=== PATIENT | male | born 1980 | race Caucasian/White ===

== ENCOUNTER 2017-01-05 12:12 | Emergency (ER) | payer OTHER ==
[~2017-01-05] VITALS: Ht 182.9 cm; Wt 85.2 kg
[~2017-01-05 12:12] MED LIST: AMOX500T PO; BUPR1SUB SL; OMEP20CA59 PO
[2017-01-05 12:24] VITALS: TEMP 36.9; Ht 182.9 cm; Wt 85.2 kg
[2017-01-05] MEDS ORDERED: CLON0.5T3 PO (12:50)
[2017-01-05] MEDS ORDERED: METH5TAB4 PO (12:50)
[2017-01-05] MEDS ORDERED: EFF75 PO (12:50)
[2017-01-05] MEDS ORDERED: ALBUT/IPRATROP 3MG/0.5MG NEB 3 ML VIAL INH STA (13:07)
--- NOTE | 2017-01-05 14:24 | DIAGNOSTIC IMAGING REPORT ---
CHEST 2 VIEWS ROUTINE CLINICAL HISTORY: cough, sob COMPARISON STUDY: No previous studies for comparison. FINDINGS: The cardiac and mediastinal contours are normal. There is no evidence of focal pulmonary consolidation. There is no evidence of failure. No pleural effusions are visualized.[ IMPRESSION: No active disease in the chest. Electronically signed by: Robbin Brown M.D. 01/05/2017 2:23 PM Dictated Date/Time: 01/05/2017 2:23 PM
--- NOTE | 2017-01-05 14:25 | DIAGNOSTIC IMAGING REPORT ---
RIGHT HIP UNILATERAL 2 VIEWS CLINICAL HISTORY: Right hip pain status post trauma COMPARISON: None. DISCUSSION: No acute fractures or dislocations are visualized. There is a tiny calcific/ossific density adjacent to the superior lateral acetabulum, likely chronic. IMPRESSION: No acute fractures or dislocations identified. Electronically signed by: Robbin Brown M.D. 01/05/2017 2:24 PM Dictated Date/Time: 01/05/2017 2:23 PM
[2017-01-05] MEDS ORDERED: KETOROLAC TROMETHAMINE 30 MG/ML VIAL IV STA (14:34)
[2017-01-05 14:52] LABS: BASO % 0.6 %; BASO ABS # 0.04 K/uL (0-0.2); COMPLETE YES; EOS % 1.8 %; HEMATOCRIT 42.3 % (42-52); IG% 0.2 %; LYMPH % 25.6 %; MEAN CELL VOLUME 92.4 fL (80-100); MEAN CORPUSCULAR HGB CONC 35.7 g/dl (32-36); MONO % 7.5 %; NEUT % 64.3 %; PLATELET COUNT 299 K/uL (130-400); RED BLOOD COUNT 4.58 M/uL (4.7-6.1); WHITE BLOOD COUNT 6.65 K/uL (4.8-10.8)
[2017-01-05 15:15] LABS: C-REACTIVE PROTEIN 3.01 mg/dl (0-0.29); CALCIUM 9.5 mg/dl (8.5-10.1); CREATININE 0.9 mg/dl (0.60-1.40); POTASSIUM 4.1 mmol/L (3.5-5.1)
[2017-01-05] MEDS ORDERED: TRAM-10 PO (15:48)
[2017-01-05] MEDS ORDERED: CEPH500C2 PO (15:48)
[2017-01-05] MEDS ORDERED: SULF800T23 PO (15:48)
[2017-01-05 15:59] VITALS: BP 139/93; PULSE 81; O2SAT 98
--- NOTE | 2017-01-08 09:56 | EMERGENCY ROOM VISIT NOTE ---
ED Visit Note First contact with patient: 12:56 Chief Complaint: Infection. History of Present Illness: Mr. Magana is a 36-year-old white female who ambulates into the ED complaining of a possible infection on his thighs and right hip pain. Historically patient reports he has a history of a MRSA infection of the left elbow [place]. Patient goes on to report that 3 days ago he slipped and fell on ice while walking onto his left hip and has been having left hip pain. He then noticed within 12 hours of his fall 5 individual pustules-like lesions on the bilateral thighs. Since that time he has noticed increasing redness around these individual pustules-like lesions and these lesions have been having increasing pain to. Currently he describes his discomfort with his lesions as a burning like sensation. He rates his discomfort 7/10. The pain is nonradiating. The pain worsens with palpation. He has not identified any alleviating factors related to the pain. He has not taken any medications for pain prior to arrival at the hospital. Additionally he describes his pain as an achy sensation at rest and sharp with palpation and ambulation. He rates this discomfort 7/10. The pain is nonradiating. He has not identified any alleviating factors related to the pain. He has not taken any medications for pain prior to arrival at the hospital he denies any associated symptoms including back pain, buttocks pain, lower leg weakness/numbness/tingling. Additionally while doing his review of symptoms he does report that he's had an upper respiratory tract infection symptoms including mildly productive cough of clear sputum, nasal congestion and dyspnea on exertion. He has not taken any medications for these symptoms. His exertional dyspnea resolves while these at rest. He denies any associated fevers, chills, sweats, hemoptysis, chest pain/ discomfort, orthopnea, dependent edema, previous clots, claudication, cramping, recent surgery/inactivity/extended travel. Review of Systems: As noted above in history of present illness. All body systems were reviewed and found to be negative as noted above. Past Medical History: As previously noted. Current Medications: Effexor, Ritalin, Klonopin. Allergies to Medications: Patient denies. Social History: Patient is currently employed; he feels safe in his home environment; he admits to tobacco use and denies alcohol use. Physical Examination: Vital Signs: Date Time Temp Pulse Resp B/P Pulse Ox O2 Delivery O2 Flow Rate FiO2 01/05/17 15:59 81 16 139/93 98 Room Air 01/05/17 14:59 86 16 136/83 100 Room Air 01/05/17 12:24 36.9 86 18 130/84 99 Room Air GENERAL: 36-year-old male in mild to moderate distress due to pain, nontoxic- appearing, afebrile and hemodynamically stable. NEUROLOGICAL: Awake, alert and oriented to person, place and time. Answering questions appropriately and following commands. Normal gait. Good hand eye coordination. No focal motor sensory deficits. SKIN: Warm, dry and pink. Thighs: On a stye patient has 2-3 pustule-like lesions measuring approximately 3-4 mm. Surrounding the pustule-like lesion area is a 2-3 cm roundish area of erythema. No lymphangitis. HEENT: Atraumatic and normocephalic. BACK: No tenderness over the bony cervical, thoracic and lumbar spine. THORAX: Lungs sounds are decreased bilaterally with inspiratory wheezing. Equal bilaterally with symmetrical chest wall. No rales or rhonchi. No increased respiratory effort or rate. HEART: Regular rate and rhythm. No gallops, rubs or murmurs are appreciated. ABDOMEN: Flat, soft and nontender. Positive bowel sounds in all quadrants. No guarding, rigidity or organomegaly. LOWER EXTREMITIES: Moves all extremities well on command and with purpose. Right: No shortening or malrotation. Tenderness over the greater trochanter with no bony deformity, swelling, ecchymosis or crepitus. Full range of motion in flexion, extension, abduction, abduction and internal and external rotation of the hip and flexion and extension of the knee against resistance. Soft tissue eruptions noted above. These areas are mildly tender to palpation. No palpable internal abscesses. Throughout the leg the skin was warm and pink and capillary refill was brisk. He was able to distinguish light sensations through all dermatomes of the leg. ED Course: Patient is assessed as noted above. Laboratory Testing: Test 01/05/17 14:25 Range/Units White Blood Count 6.65 4.8-10.8 K/uL Red Blood Count 4.58 4.7-6.1 M/uL Hemoglobin 15.1 14.0-18.0 g/dL Hematocrit 42.3 42-52 % Mean Corpuscular Volume 92.4 80-100 fL Mean Corpuscular Hemoglobin 33.0 25-34 pg Mean Corpuscular Hemoglobin Concent 35.7 32-36 g/dl Platelet Count 299 130-400 K/uL Mean Platelet Volume 10.0 7.4-10.4 fL Neutrophils (%) (Auto) 64.3 % Lymphocytes (%) (Auto) 25.6 % Monocytes (%) (Auto) 7.5 % Eosinophils (%) (Auto) 1.8 % Basophils (%) (Auto) 0.6 % Neutrophils # (Auto) 4.28 1.4-6.5 K/uL Lymphocytes # (Auto) 1.70 1.2-3.4 K/uL Monocytes # (Auto) 0.50 0.11-0.59 K/uL Eosinophils # (Auto) 0.12 0-0.5 K/uL Basophils # (Auto) 0.04 0-0.2 K/uL RDW Standard Deviation 42.3 36.4-46.3 fL RDW Coefficient of Variation 12.5 11.5-14.5 % Immature Granulocyte % (Auto) 0.2 % Immature Granulocyte # (Auto) 0.01 0.00-0.02 K/uL Erythrocyte Sedimentation Rate 20 0-14 mm/hr Sodium Level 139 136-145 mmol/L Potassium Level 4.1 3.5-5.1 mmol/L Chloride Level 104 98-107 mmol/L Carbon Dioxide Level 28 21-32 mmol/L Anion Gap 7.0 3-11 mmol/L Blood Urea Nitrogen 8 7-18 mg/dl Creatinine 0.90 0.60-1.40 mg/dl Est Creatinine Clear Calc Drug Dose 124.6 ml/min Estimated GFR () 126.9 Estimated GFR (Non- 109.5 BUN/Creatinine Ratio 9.0 10-20 Random Glucose 87 70-99 mg/dl Calcium Level 9.5 8.5-10.1 mg/dl C-Reactive Protein 3.01 0-0.29 mg/dl Right Hip X-Rays: Were read by myself and the radiologist showing no acute fractures or dislocations. Chest X-Rays: Were read by myself and the radiologist showing no acute infiltrates, effusions or pneumothorax. Normal heart silhouette and bony anatomy. Patient was given an albuterol/Atrovent nebulizer breathing treatment and 60 mg of Toradol IM for pain. Patient was reassessed multiple times during his stay in the emergency department. Patient's case was reviewed with Dr. Grajeda; we agreed on diagnostic approach, treatment, disposition and plan. Patient was educated about tonight's findings and instructed on his treatment plan; he verbalizes understanding and agreement with this plan. Clinical Impression: Right hip pain. Status post fall. Skin eruptions. Cough. Decision-Making: Initially for his hip pain I considered fracture, dislocation, contusion, for his cough I considered pneumonia, bronchitis, upper respiratory tract infection and for his skin eruption I considered MRSA and other causes. Disposition: Patient discharged home; prior to departure he was reassessed and subjectively reported he was pain-free and he felt his breathing was much easier ; lung sounds shows resolution of wheezing and improved air movement. Plan: Patient was prescribed Bactrim DS 2 times a day for 10 days and Keflex 500 mg 4 times a day for 10 days for his skin eruption. Patient was prescribed 5100 mg of Ultram every 6 hours as needed for pain. Patient was encouraged to keep his upcoming appointment with his primary care provider this Wednesday. Patient was encouraged return the ED for worsening pain, worsening cough/ shortness of breath, wheezing, worsening skin conditions, signs of infection or any new/concerning symptoms.
== END 2017-01-05 16:00 | disposition home or self-care (01) ==
LOC: C.EDB 12:16 → C.EDD 16:00
DX: M25.551 Pain in right hip (principal); R21 Rash and other nonspecific skin eruption; R05 Cough; F17.200 Nicotine dependence, unspecified, uncomplicated; Z79.899 Other long term (current) drug therapy; Z86.14 Personal history of Methicillin resistant Staphylococcus aureus infection; W00.0XXA Fall on same level due to ice and snow, initial encounter; Y93.01 Activity, walking, marching and hiking; Y99.8 Other external cause status